=== PATIENT | male | born 1980 | race Caucasian/White ===

== ENCOUNTER 2018-02-01 01:02 | Emergency (ER) | payer SELFPAY ==
[2018-02-01 02:28] VITALS: BP 132/92; PULSE 72; TEMP 97.8; BMI 30.3
[2018-02-01] MEDS ORDERED: CLINDAMYCIN HCL 300 MG CAPSULE PO ONE (02:40)
--- NOTE | 2018-02-01 02:47 | PDOC ---
History of Present Illness - General Chief Complaint: Abscess Boil Stated Complaint: CYST ON HEAD Time Seen by Provider: 02/01/18 01:25 History Source: Patient Exam Limitations: No Limitations - History of Present Illness Initial Comments: 02/01/18 02:43 Best Contact: PCP:0 Pmhx:0 Pshx:0 Allergies:PCN/throat closes K K FH:0 Social Hx: Cigarettes/ 0 Alcohol/ 0 Drugs/0 LMP:N/A 37-year-old male presents to the emergency department complaining of a nondraining abscess to the right side of his forehead without fever, chills, nausea/vomiting. Patient states it initially started as a pimple 2 weeks ago which prompted him to squeeze hoping to get some drainage but instead increase in size with some redness to the skin. Patient denies any other complaints. Past History - Past Medical History Allergies/Adverse Reactions: Allergies Allergy/AdvReac Type Severity Reaction Status Date / Time No Known Allergies Allergy Verified 02/01/18 01:21 Home Medications: Ambulatory Orders Clindamycin [Cleocin -] 300 mg PO TID #21 capsule 02/01/18 COPD: No - Immunization History Immunization Up to Date: Yes - Suicide/Smoking/Psychosocial Hx Smoking History: Never smoked Have you smoked in the past 12 months: No Information on smoking cessation initiated: No Hx Alcohol Use: No Drug/Substance Use Hx: No Substance Use Type: None Review of Systems - Review of Systems Able to Perform ROS?: Yes Comments:: 02/01/18 02:44 CONSTITUTIONAL: Absent: fever, chills, diaphoresis, generalized weakness, malaise, loss of appetite HEENT: Absent: rhinorrhea, nasal congestion, throat pain, throat swelling, difficulty swallowing, mouth swelling, ear pain, eye pain, visual Changes CARDIOVASCULAR: Absent: chest pain, loss of consciousness, palpitations, irregular heart rate, peripheral edema RESPIRATORY: Absent: cough, shortness of breath, dyspnea with exertion, orthopnea, wheezing, stridor, hemoptysis GASTROINTESTINAL: Absent: abdominal pain, abdominal distension, nausea, vomiting, diarrhea, constipation, melena, hematochezia GENITOURINARY: Absent: dysuria, frequency, urgency, hesitancy, hematuria, flank pain, genital pain MUSCULOSKELETAL: Absent: myalgia, arthralgia, joint swelling SKIN: Right forehead 3cm abscess Absent: rash, itching, pallor HEMATOLOGIC/IMMUNOLOGIC: Absent: easy bleeding, easy bruising, lymphadenopathy, frequent infections ENDOCRINE: Absent: unexplained weight gain, unexplained weight loss, heat intolerance, cold intolerance NEUROLOGIC: Absent: headache, focal weakness or paresthesias, dizziness, unsteady gait, seizure, mental status changes, bladder or bowel incontinence PSYCHIATRIC: Absent: anxiety, depression, suicidal or homicidal ideation, hallucinations. Is the patient limited Icelandic proficient: No *Physical Exam - Vital Signs Last Vital Signs Temp Pulse Resp BP Pulse Ox 97.8 F 72 20 132/92 99 02/01/18 01:23 02/01/18 01:23 02/01/18 01:23 02/01/18 01:23 02/01/18 01:23 - Physical Exam Comments: 02/01/18 02:45 GENERAL: Well developed, well nourished. Awake and alert. No acute distress. SKIN: Warm and dry. Normal capillary refill. No rashes. No jaundice. Right sided forehead 3cm non draining slight erythematous/tender abscess PROCEDURE NOTE Right sided forehead Betadine prep 1% lidocaine= 3 mL #11 blade incision Drainage cultured 1/4" packing Telfa 4 x 4 dressing *DC/Admit/Observation/Transfer Diagnosis at time of Disposition: Abscess of forehead - Discharge Dispostion Disposition: HOME Condition at time of disposition: Stable Decision to Admit order: No - Prescriptions Prescriptions: Clindamycin [Cleocin -] 300 mg PO TID #21 capsule - Referrals - Patient Instructions Printed Discharge Instructions: DI for Incision and Drainage of a Skin Abscess Additional Instructions: If the packing falls out do not replace it Tylenol as needed for pain Clindamycin antibiotics as prescribed until completion Wound check in 2 days back in the emergency department or your physician Return back to the emergency department for severe/persistent or worsening symptoms, red streaks, fever or copious drainage - Post Discharge Activity
[2018-02-01] MEDS ORDERED: CLINDAMYCIN HCL 150 MG CAPSULE (FP) ONE (02:54)
== END 2018-02-01 03:23 | disposition home or self-care (01) ==
LOC: JER 01:02
PROC: 0J910ZZ Drainage of Face Subcutaneous Tissue and Fascia, Open Approach (ICD-10-PCS; principal; 2018-02-01)
DX: L02.01 Cutaneous abscess of face (principal)
CPT/HCPCS: 87070; 87205; 99282-25

== ENCOUNTER 2018-02-03 11:08 | Emergency (ER) | payer SELFPAY ==
[2018-02-03 11:37] VITALS: BP 128/81; PULSE 71; TEMP 98.2; BMI 29.8
--- NOTE | 2018-02-03 12:05 | PDOC ---
Suture Removal/Wound Check HPI - History of Present Illness Chief Complaint: Revisit,Wound Recheck Stated Complaint: REVISIT, WOUND CHECK Time Seen by Provider: 02/03/18 11:55 History Source: Yes: Patient, Old Records Exam Limitations: Yes: No Limitations Treated at: [facility] Date of Last ED visit: 02/01/18 - Previous ED Treatment Type of procedure performed on last visit: Yes: I&D of Abscess Past History - Past Medical History Allergies/Adverse Reactions: Allergies Allergy/AdvReac Type Severity Reaction Status Date / Time Penicillins Allergy Severe Hives Verified 02/03/18 11:37 Home Medications: Ambulatory Orders Acetaminophen [Tylenol] 650 mg PO PRN 02/01/18 Clindamycin [Cleocin -] 300 mg PO TID #21 capsule 02/01/18 COPD: No - Immunization History Immunization Up to Date: Yes - Suicide/Smoking/Psychosocial Hx Smoking History: Never smoked Have you smoked in the past 12 months: No Information on smoking cessation initiated: No Hx Alcohol Use: No Drug/Substance Use Hx: No Substance Use Type: None Suture Removal/Wound Check PE - Physical Exam Laceration/Wound Check Symptoms: reports: None Current Severity Level: None Maximum Severity Level: None Pain Localization: None Pain Radiation: None *Review of Systems - Review of Systems Able to Perform ROS?: Yes All Other Systems: Reviewed and Negative *Physical Exam - Vital Signs Last Vital Signs Temp Pulse Resp BP Pulse Ox 98.2 F 71 17 128/81 99 02/03/18 11:34 02/03/18 11:34 02/03/18 11:34 02/03/18 11:34 02/03/18 11:34 - Physical Exam General Appearance: Yes: Appropriately Dressed. No: Apparent Distress Integumentary: positive: Normal Color, Dry, Warm, Other (I&D site noted to right forehead. No erythema, discharge or drainage noted. No streaking noted from wound site.) Medical Decision Making - Medical Decision Making 02/03/18 12:03 A/P: 37-year-old male here for wound check of I&D performed on 02/01 Iodoform packing removed. Wound bed well-appearing no signs of infection noted Iodoform packing replaced Dry sterile dressing placed over wound Discharge home to follow-up in 5 days *DC/Admit/Observation/Transfer Diagnosis at time of Disposition: Wound check, abscess - Discharge Dispostion Disposition: HOME Condition at time of disposition: Stable Decision to Admit order: No - Referrals - Patient Instructions Additional Instructions: Continue antibiotics as previous prescribed. Return to her primary doctor or the emergency department in 5 days for reevaluation of wound. If packing comes out prior to that that is okay, we do not need evaluation for removed packing. Return to emergency department for any discharge or drainage from the wound, foul smell, fevers, increased pain, redness around the wound, or any other concerns - Post Discharge Activity
== END 2018-02-03 12:08 | disposition home or self-care (01) ==
LOC: JERFT 11:08 → JER 11:08 → JERFT 12:08
DX: Z48.817 Encounter for surgical aftercare following surgery on the skin and subcutaneous tissue (principal); Z48.01 Encounter for change or removal of surgical wound dressing
CPT/HCPCS: 99281-25